=== PATIENT | male | born 1965 ===

== ENCOUNTER 2017-05-15 16:20 | Emergency (ER) | payer OTHER ==
[2017-05-15 16:20] VITALS: BMI 25.5
[2017-05-15 16:30] VITALS: TEMP 98.4
--- NOTE | 2017-05-15 16:59 | ED PDOC ---
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 Per EMS, ambulance was called to patient's room after landlord found him acting bizarre in the room he rents. Landlord reported to the EMS that he does all kinds of drugs. EMS reports that on their arrival, pt was thrashing around in his room violently, awake and agitated, and the room was a mess. Patient admits he has been drinking alcohol, that some truck despatcher gave him a "bottle of whiskey". He reports he was drinking heavily and that he has fallen many times today. Patient's history unreliable due to intoxication, specifically timeline of events is questionable. 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 Unknown if patient loss consciousness. He admits not taking his medications for hypertension. PMD Dr Lemus PMD Past Medical History Reviewed: Historical Data, Nursing Documentation, Vital Signs Vital Signs: Last Vital Signs Temp 98.4 F 05/15/17 16:27 Pulse 107 H 05/15/17 16:27 Resp 16 05/15/17 16:27 BP 201/147 H 05/15/17 16:27 Pulse Ox 100 05/15/17 16:27 - Medical History PMH: Diabetes, HTN Denies: Chronic Kidney Disease - Family History Family History: States: Unknown Family Hx - Social History Current smoker - smoking cessation education provided: Yes (heavy smoker >10 cigarettes daily) - Immunization History Hx Tetanus Toxoid Vaccination: No Hx Influenza Vaccination: Yes Hx Pneumococcal Vaccination: No - Home Medications Home Medications: Ambulatory Orders Medication Instructions Recorded Atenolol [Tenormin] 25 mg PO DAILY #0 tab 04/22/14 Lisinopril 10 mg PO DAILY #30 tab 05/20/14 Atenolol [Tenormin] 25 mg PO DAILY #30 tab 08/22/14 Lisinopril 10 mg PO DAILY #30 tab 08/22/14 - Allergies Allergies/Adverse Reactions: Allergies Allergy/AdvReac Type Severity Reaction Status Date / Time hair dye Allergy Uncoded 05/20/14 17:46 Review of Systems ROS Statement: Except As Marked, All Systems Reviewed And Found Negative ( unreliable due to intoxication) Constitutional: Positive for: Other (excessive thirst) Musculoskeletal: Positive for: Hand Pain (left) Neurological: Negative for: Weakness (focal) Physical Exam - Reviewed Nursing Documentation Reviewed: Yes Vital Signs Reviewed: Yes - Physical Exam Appears: Positive for: In Acute Distress (intoxicated, dissheveled, covered in dirt) Head Exam: Positive for: NORMOCEPHALIC (with multiple abrasions to head) Skin: Positive for: Warm, Dry (multiple abrasions to hands), Rash (appears to have some healed facial magana) Eye Exam: Positive for: Conjunctival injection ENT: Positive for: Pharynx Is (clear), Other (tacky mucus membranes) Neck: Positive for: Painless ROM, Supple Cardiovascular/Chest: Positive for: Regular Rate, Rhythm, Chest Non Tender. Negative for: Murmur Respiratory: Positive for: Normal Breath Sounds. Negative for: Accessory Muscle Use, Respiratory Distress Gastrointestinal/Abdominal: Negative for: Tenderness, Distended Back: Positive for: Normal Inspection. Negative for: Decreased ROM Extremity: Positive for: Normal ROM, Other (abrasions bilateral hands). Negative for: Deformity Lymphatic: Negative for: Adenopathy Neurologic/Psych: Positive for: Oriented (x1), Mood/Affect (agitated and anxious , poor concentration and poor judgement). Negative for: Motor/Sensory Deficits - Laboratory Results Result Diagrams: 05/15/17 21:11 05/15/17 21:11 - ECG O2 Sat by Pulse Oximetry: 100 (RA) Pulse Ox Interpretation: Normal - Critical Care Total Time (In Min): 30 Documented Critical Care: Time excludes all time spent performint seperately billable procedures Medical Decision Making Medical Decision Making: Initial Impression: Intoxication, head injury, hand injury, multiple abrasions. Differential includes but not limited to: alcohol or drug intoxication, traumatic brain injury, alcohol withdrawal, dehydration, electrolyte abnormality , left hand fracture Initial Plan: --Type and screen --Head w/o contrast [CT] --EKG --Alcohol serum --Comp Metabolic Panel --Creatine Phosphokinase --Drug screen, urine --Lact acid, plasma --Magnesium --Phosphorus --Troponin --Urine dipstick --CBC w/ differential --Chest one view [RAD] --Sodium Chloride 1,000 ml IV 150 mls/hr --Adacel 0.5 ml IM --Hand left 3 views routine [RAD] --reevaluation Pt agitated in ER, threatening to leave. unable to redirect. multiple areas of inexplicable trauma. Needs to stay in ER for safety to self as well as others. Given medications for anxiolysis. 17:[address] FINDINGS: HEMORRHAGE: No acute parenchymal, subarachnoid or extra-axial hemorrhage. BRAIN: No mass effect or edema. No atrophy or chronic microvascular ischemic changes. VENTRICLES: Unremarkable. No hydrocephalus. CALVARIUM: Unremarkable. PARANASAL SINUSES: Focal area polypoid like mucosal thickening right frontal sinus. Bilateral paired without MASTOID AIR CELLS: Unremarkable as visualized. No inflammatory changes. OTHER FINDINGS: None. IMPRESSION: No acute intracranial hemorrhage. Bloodwork had to be redrawn. BAL <10, post IVF and PO fluids hydration. UDS cocaine positive. Elevated WBC and CPK, improvement of lactic acid. ?Seizure induced abnormalities or due to stimulated state while cocaine toxic 1030p Pt declining to stay in hospital. Currently he is lucid and oriented x 3. He is producing urine well and tolerating PO. Advised him of lab findings and need to continue to aggressively hydrate himself. Possibility of seizure discussed as well, also likely due to drug use. Emphasized need to follow up and addiction resources provided. Scribe Attestation: Documented by Evan Pratt, acting as a scribe for Nelida Rea MD Provider Scribe Attestation: All medical record entries made by the Scribe were at my direction and personally dictated by me. I have reviewed the chart and agree that the record accurately reflects my personal performance of the history, physical exam, medical decision making, and the department course for this patient. I have also personally directed, reviewed, and agree with the discharge instructions and disposition. Disposition - Clinical Impression Clinical Impression: Cocaine abuse, Abrasion, Rhabdomyolysis - Disposition Referrals: [facility] [Outside] Disposition: Routine/Home Disposition Time: 22:30 Condition: IMPROVED Additional Instructions: YOU HAVE A PROBLEM WITH DRUGS AND NEED TO GET HELP REST AND DRINK PLENTY OF HYDRATING (NONALCOHOLIC) FLUIDS PLEASE REFER TO THE ATTACHED REFERRAL FOR ADDICTION HELP Instructions: Rhabdomyolysis (ED), Cocaine Abuse (ED), Head Injury (ED), Acute Delirium (ED), Abrasion (ED)
--- NOTE | 2017-05-15 18:08 | CT ---
PROCEDURE: CT HEAD WITHOUT CONTRAST. HISTORY: AMS. Head injury COMPARISON: None available. TECHNIQUE: Axial computed tomography images were obtained through the head/brain without intravenous contrast. Radiation dose: Total exam DLP = 924.83 mGy-cm. This CT exam was performed using one or more of the following dose reduction techniques: Automated exposure control, adjustment of the mA and/or kV according to patient size, and/or use of iterative reconstruction technique. FINDINGS: HEMORRHAGE: No acute parenchymal, subarachnoid or extra-axial hemorrhage. BRAIN: No mass effect or edema. No atrophy or chronic microvascular ischemic changes. VENTRICLES: Unremarkable. No hydrocephalus. CALVARIUM: Unremarkable. PARANASAL SINUSES: Focal area polypoid like mucosal thickening right frontal sinus. Bilateral paired without MASTOID AIR CELLS: Unremarkable as visualized. No inflammatory changes. OTHER FINDINGS: None. IMPRESSION: No acute intracranial hemorrhage.
[2017-05-15 18:48] LABS: BARBITURATES, UR NEGATIVE (NEGATIVE); BENZODIAZEPINES, UR NEGATIVE (NEGATIVE); OPIATES, UR NEGATIVE (NEGATIVE); PHENCYCLIDINE, UR NEGATIVE (NEGATIVE)
[2017-05-15] MEDS: Multivitamin (MVI) 10 ML, Thiamine 100 MG, Folic Acid 1 MG in Sodium Chloride 0.9% 1,00... IV ONE (19:39)
[2017-05-15 19:42] LABS: BASO # 0.1 K/uL (0.0-0.2); BASO % 0.8 % (0.0-2.0); EOS # 0.1 K/uL (0.0-0.7); EOS % 0.4 % (0.0-4.0); HEMOGLOBIN 13.5 g/dL (12.0-18.0); LYMPH # 1.4 K/uL (1.0-4.3); LYMPH % 7.6 % (20.0-40.0); MEAN CELL VOLUME 91.2 fl (80.0-94.0); MEAN CORPUSCULAR HGB CONC 31.8 g/dL (33.0-37.0); MEAN PLATELET VOLUME 8.2 fl (7.2-11.7); MONO # 1.1 K/uL (0.0-0.8); MONO % 6.2 % (0.0-10.0); NEUT # 15.4 K/uL (1.8-7.0); PLATELET COUNT 254 K/uL (130-400); RBC 4.67 Mil/uL (4.40-5.90); WHITE BLOOD COUNT 18.2 K/uL (4.8-10.8)
[2017-05-15 19:43] VITALS: BP 146/95; PULSE 87; RESP 20; O2SAT 100
[2017-05-15] MEDS: Sodium Chloride 0.9% 1,000 ML IV STA (20:16)
[2017-05-15 21:27] LABS: BASO % 0.2 % (0.0-2.0); HEMOGLOBIN 13.4 g/dL (12.0-18.0); LYMPH # 1.2 K/uL (1.0-4.3); LYMPH % 6.2 % (20.0-40.0); MEAN CELL VOLUME 88.5 fl (80.0-94.0); MEAN CORPUSCULAR HEMOGLOBIN 28.9 pg (27.0-31.0); MEAN CORPUSCULAR HGB CONC 32.6 g/dL (33.0-37.0); MEAN PLATELET VOLUME 7.6 fl (7.2-11.7); MONO # 1.5 K/uL (0.0-0.8); MONO % 7.8 % (0.0-10.0); NEUT # 16.9 K/uL (1.8-7.0); NEUT % 85.8 % (50.0-75.0); RBC 4.64 Mil/uL (4.40-5.90); RED CELL DISTRIBUTION WIDTH 13.5 % (11.5-14.5); WHITE BLOOD COUNT 19.6 K/uL (4.8-10.8)
[2017-05-15 21:40] LABS: ALB/GLOB RATIO 1.5 (1.0-2.1); ALBUMIN 4.2 g/dL (3.5-5.0); ALT/SGPT 68 U/L (21-72); AST/SGOT 142 U/L (17-59); BLOOD UREA NITROGEN 22 mg/dl (9-20); CALCIUM 9.2 mg/dL (8.4-10.2); GFR AFRICAN-AMERICAN > 60; GFR NON-AFRICAN AMERICAN 54; MAGNESIUM 2.8 MG/DL (1.6-2.3)
[2017-05-15 21:51] LABS: BANDS 2 % (0-2); BASOPHIL 1 % (0-2); LYMPHOCYTE 10 % (20-50); MONOCYTE 9 % (0-10); NEUTROPHIL 78 % (42-75); PLATELET ESTIMATE NORMAL (NORMAL); TOTAL CELLS COUNTED 100
[2017-05-15 21:52] LABS: TOXIC GRANULATION PRESENT
--- NOTE | 2017-05-16 08:19 | CARD ---
APPROVED REPORT EKG Measurement Heart [id number] MI [id number] <Conclusion> Normal sinus rhythm Biatrial enlargement Left ventricular hypertrophy Prolonged QT Abnormal ECG
--- NOTE | 2017-05-16 10:58 | RAD ---
PROCEDURE: CHEST RADIOGRAPH, 1 VIEW HISTORY: ams trauma COMPARISON: None available. FINDINGS: LUNGS: Clear. PLEURA: No pneumothorax or pleural fluid seen. CARDIOVASCULAR: Normal. OSSEOUS STRUCTURES: No significant abnormalities. VISUALIZED UPPER ABDOMEN: Normal. OTHER FINDINGS: None. IMPRESSION: No active disease.
--- NOTE | 2017-05-16 10:58 | RAD ---
PROCEDURE: Left Hand Radiographs. HISTORY: trauma COMPARISON: None. FINDINGS: BONES: No acute fracture. Old ulnar styloid fracture. JOINTS: Unremarkable. SOFT TISSUES: Unremarkable. OTHER FINDINGS: None. IMPRESSION: No demonstrated acute fracture or dislocation.
== END 2017-05-15 22:41 | disposition home or self-care (01) ==
LOC: H.ER 16:20
DX: S09.90XA Unspecified injury of head, initial encounter (principal); F10.129 Alcohol abuse with intoxication, unspecified; S60.512A Abrasion of left hand, initial encounter; S60.511A Abrasion of right hand, initial encounter; W19.XXXA Unspecified fall, initial encounter; F17.210 Nicotine dependence, cigarettes, uncomplicated; E11.9 Type 2 diabetes mellitus without complications; I10 Essential (primary) hypertension
CPT/HCPCS: 70450; 71045; 73130; 80053; 80320; 80324; 80345; 80346; 80349; 80353; 80358; 80361; 82550; 82948; 83605; 83735; 83992; 84100; 84484; 85025; 86850; 86900; 90471; 90715; 93005; 96361; 96374; 96375; 99284; J2060; J3411; J7040